=== PATIENT | female | born 1945 | race Caucasian/White ===

== ENCOUNTER 2016-07-12 04:43 | Observation (INO) | payer MEDICARE, OTHER ==
[2016-07-12] MEDS ORDERED: PIPERACILLIN/TAZOBACTAM 3.375 GM in SODIUM CHLORIDE 0.9% 100ML 100 ML IVPB ONE (05:31)
[2016-07-12] MEDS ORDERED: ACETAMINOPHEN 325 MG TAB PO ONE (05:31)
--- NOTE | 2016-07-12 05:35 | ED.PDOC ---
History of Present Illness - General Source: patient Exam Limitations: no limitations - History of Present Illness Initial Comments: the patient is a 71-year-old female presenting to the emergency room secondary to fever for the last 12 hours. She is having lower abdominal pain and lower right-sided back pain for the last 6-7 hours. She is also having diarrhea for the last 5 hours but she did take 2 doses of milk of magnesia yesterday for chronic constipation. She does have a history of urinary tract infections and diverticulitis. She does still have her appendix according to her. The patient is exquisitely tender in the right lower quadrant still very tender over the suprapubic area and even the left lower quadrant. No evidence of trauma. No palpable masses. Timing/Duration: 24 hours Severity: severe Improving Factors: nothing Worsening Factors: movement Associated Symptoms: fever/chills, loss of appetite, malaise, nausea/vomiting <Erich Morton - Last Filed: 07/12/16 06:56> <Marilee Walton - Last Filed: 07/12/16 08:28> - General Chief Complaint: Fever Stated Complaint: back pain Time Seen by Provider: 07/12/16 05:05 - History of Present Illness Allergies/Adverse Reactions: Allergies Citalopram Allergy (Verified 07/12/16 05:56) Metolazone Allergy (Verified 07/12/16 05:56) Phenobarbital Allergy (Verified 07/12/16 05:56) Tramadol Adverse Reaction (Verified 07/12/16 05:00) Home Medications: Ambulatory Orders Allopurinol [Zyloprim] 100 mg PO DAILY 04/07/16 Aspirin [Aspirin Childrens] 81 mg PO DAILY 04/07/16 Atorvastatin Calcium [Lipitor] 10 mg PO DAILY 04/07/16 Calcium Carbonate-Vitamin D [Calcium 600+D 600-400 mg-Unit] 1 tab PO DAILY 04/07 Folic Acid 1 mg PO DAILY 04/07/16 Furosemide [Lasix] 40 mg PO DAILY 04/07/16 Levothyroxine Sodium [Synthroid] 75 mcg PO DAILY 04/07/16 Oxybutynin Chloride 5 mg PO DAILY 04/07/16 Pantoprazole Sodium 40 mg PO DAILY 04/07/16 Potassium Chloride [Potassium Chloride ER] 10 meq PO DAILY 04/07/16 Ranitidine HCl 300 mg PO DAILY 04/07/16 Dexlansoprazole [Dexilant] 60 mg PO 07/12/16 Ranitidine HCl 300 mg PO 07/12/16 Review of Systems - Review of Systems Constitutional: States: fever, malaise EENTM: States: no symptoms reported Respiratory: States: no symptoms reported Cardiology: States: no symptoms reported Gastrointestinal/Abdominal: States: abdominal pain, constipation, diarrhea, nausea, vomiting Genitourinary: States: dysuria, frequency Musculoskeletal: States: back pain - on the right and lower Skin: States: no symptoms reported Neurological: States: no symptoms reported Endocrine: States: no symptoms reported All other Systems: No Change from Baseline <Erich Morton - Last Filed: 07/12/16 06:56> Past Medical History (General) - Patient Medical History Hx Stroke: No Hx Congestive Heart Failure: Yes Hx Hypertension: Yes Hx Diabetes: No Hx Gastroesophageal Reflux: Yes Hx Cancer: Yes - skin Surgical History: tonsillectomy, Hysterectomy - Vaccination History Hx Influenza Vaccination: Yes <Erich Morton - Last Filed: 07/12/16 06:56> Family Medical History - Family History Mother Family History: No Known <Erich Morton - Last Filed: 07/12/16 06:56> Physical Exam - Physical Exam General Appearance: Alert, Obvious distress Eye Exam: bilateral normal Ears, Nose, Throat: normal ENT inspection, normal pharynx Neck: non-tender, full range of motion, supple Respiratory: chest non-tender, lungs clear, normal breath sounds, no respiratory distress, no accessory muscle use Cardiovascular/Chest: normal peripheral pulses, no edema, other - regular rate Peripheral Pulses: radial,right: 2+, radial,left: 2+, dorsalis pedis,right: 2+, dorsalis pedis,left: 2+ Gastrointestinal/Abdominal: soft, other - see history of present illness Rectal Exam: deferred Back Exam: CVA tenderness (R) - but lower than expected Extremity: normal range of motion - slightly decreased range of motion, non- tender, no pedal edema, no calf tenderness, normal capillary refill Neurologic: alert, normal mood/affect, oriented x 3 Skin Exam: normal color Comments: Vital Signs - 24 hr 07/12/16 04:50 Temperature 102.3 F H Pulse Rate [LA] 76 Respiratory 20 Rate O2 Sat by Pulse 98 Oximetry <PraveenErich L - Last Filed: 07/12/16 06:56> Progress - Results/Orders Results/Orders: Laboratory Tests 07/12/16 07/12/16 05:26 05:38 WBC 8.0 RBC 3.69 L Hgb 12.1 Hct 36.7 MCV 99.3 H MCH 32.7 H MCHC 33.1 RDW 13.5 Plt Count 148 MPV 7.1 L Absolute Neuts (auto) 6.60 Absolute Lymphs (auto) 0.50 L Absolute Monos (auto) 0.70 Absolute Eos (auto) 0.10 Absolute Basos (auto) 0.00 Neutrophils % 82.5 H Lymphocytes % 6.8 L Monocytes % 9.1 H Eosinophils % 1.2 Basophils % 0.4 Sodium 140 Potassium 3.9 Chloride 106 Carbon Dioxide 25 Anion Gap 12.9 BUN 29 H Creatinine 1.31 H BUN/Creatinine Ratio 22.1 H Random Glucose 116 H Serum Osmolality 286.2 Calcium 9.5 Total Bilirubin 0.4 AST 30 ALT 20 Alkaline Phosphatase 95 Serum Total Protein 6.7 Albumin 4.3 Globulin 2.4 Albumin/Globulin Ratio 1.8 Urine Color Yellow Urine Appearance Sl cloudy Urine pH 8.5 H Ur Specific [place] 1.015 Urine Protein Negative Urine Glucose (UA) Negative Urine Ketones Negative Urine Blood Negative Urine Nitrite Negative Urine Bilirubin Negative Urine Urobilinogen 0.2 Ur Leukocyte Esterase Trace H Urine RBC 0 Urine WBC 3-5 H Ur Epithelial Cells 1-3 Urine Bacteria Rare <Erich Morton - Last Filed: 07/12/16 06:56> Departure <Erich Morton - Last Filed: 07/12/16 06:56> - Departure Time of Disposition: 08:28 <Marilee Walton - Last Filed: 07/12/16 08:28> - Departure Clinical Impression: Colitis, acute Disposition: Admit Patient Condition: Good Referrals: Mendez Dela Cruz MD [Primary Care Provider] - 1-2 Weeks Home Medications: Ambulatory Orders Allopurinol [Zyloprim] 100 mg PO DAILY 04/07/16 Aspirin [Aspirin Childrens] 81 mg PO DAILY 04/07/16 Atorvastatin Calcium [Lipitor] 10 mg PO DAILY 04/07/16 Calcium Carbonate-Vitamin D [Calcium 600+D 600-400 mg-Unit] 1 tab PO DAILY 04/07 Folic Acid 1 mg PO DAILY 04/07/16 Furosemide [Lasix] 40 mg PO DAILY 04/07/16 Levothyroxine Sodium [Synthroid] 75 mcg PO DAILY 04/07/16 Oxybutynin Chloride 5 mg PO DAILY 04/07/16 Pantoprazole Sodium 40 mg PO DAILY 04/07/16 Potassium Chloride [Potassium Chloride ER] 10 meq PO DAILY 04/07/16 Ranitidine HCl 300 mg PO DAILY 04/07/16 Dexlansoprazole [Dexilant] 60 mg PO 07/12/16 Ranitidine HCl 300 mg PO 07/12/16 Decision To Admit - Decistion To Admit Decision to Admit Reason: Admit from ER Decision to Admit Date: 07/12/16 Decision to Admit Time: 08:28 <Marilee Walton - Last Filed: 07/12/16 08:28> Addendum entered and electronically signed by Erich Morton MD 07/12/16 06:59 : Departure - Departure Clinical Impression: Colitis, acute Disposition: Admit Patient Home Medications: Ambulatory Orders Allopurinol [Zyloprim] 100 mg PO DAILY 04/07/16 Aspirin [Aspirin Childrens] 81 mg PO DAILY 04/07/16 Atorvastatin Calcium [Lipitor] 10 mg PO DAILY 04/07/16 Calcium Carbonate-Vitamin D [Calcium 600+D 600-400 mg-Unit] 1 tab PO DAILY 04/07 Folic Acid 1 mg PO DAILY 04/07/16 Furosemide [Lasix] 40 mg PO DAILY 04/07/16 Levothyroxine Sodium [Synthroid] 75 mcg PO DAILY 04/07/16 Oxybutynin Chloride 5 mg PO DAILY 04/07/16 Pantoprazole Sodium 40 mg PO DAILY 04/07/16 Potassium Chloride [Potassium Chloride ER] 10 meq PO DAILY 04/07/16 Ranitidine HCl 300 mg PO DAILY 04/07/16 Dexlansoprazole [Dexilant] 60 mg PO 07/12/16 Ranitidine HCl 300 mg PO 07/12/16 ED Addendum - ED Addendum Addendum: the patient is a 71-year-old female with a history of recurrent urinary tract infections and diverticulitis presenting with fever approximating 103 with fairly severe lower abdominal pain worse on the right and left. Urinalysis is reassuring. CT scan itself is reassuring. Due to the pain and the fevers were going to go ahead and admit her and place her on antibiotic therapy. Zosyn has been started on the patient. Pain medications have been given. She may need IV fluids. She has needed dose of antiemetics.
[2016-07-12] MEDS ORDERED: KETOROLAC TROMETHAMINE INJ 30 MG/ML VIAL IV ONE (05:36)
[2016-07-12] MEDS ORDERED: SODIUM CHLORIDE 0.9% 100ML 100 ML IVPB ONE (05:42)
[2016-07-12] MEDS ORDERED: PIPERACILLIN/TAZOBACTAM 3.375 GM VIAL IVPB ONE (05:42)
[2016-07-12] MEDS ORDERED: ONDANSETRON ODT 8 MG TAB SL SCH (06:00)
[2016-07-12] MEDS ORDERED: DEX 5% W/NACL 0.45% 1000ML 1,000 ML IVS PRN (06:06)
--- NOTE | 2016-07-12 06:53 | CT ---
EXAM DESCRIPTION: CT ABDOMEN PELVIS WITHOUT IV CONTRAST 07/12/2016 6:45 AM CLINICAL HISTORY: 71 y/o , F, lower abd pain COMPARISON: CT abdomen and pelvis with contrast April 07, 2016 TECHNIQUE: Volumetric CT acquisition was performed through the abdomen and pelvis. Images in the axial and coronal planes were presented for interpretation FINDINGS: The visualized portions of the lung bases are clear. The cardiomediastinal structures are within normal limits. Within the upper abdomen, the liver and spleen are normal in size and morphology. The gallbladder is normal in morphology. The intra/extrahepatic biliary tree is normal in appearance. The pancreas and adrenal glands are normal. The right kidney is normal in size in the right ureter is normal in course and caliber. There are no right renal calculi, distal obstructing stones, or evidence of hydronephrosis/hydroureter. The left kidney is normal in size in the left ureter is normal in course and caliber. There are no left renal calculi, distal obstructing stones, or evidence of hydronephrosis/hydroureter. There is a moderate size hiatal hernia. The small intestines are within normal limits without evidence of bowel dilation or wall thickening. The appendix is well visualized and normal. There are moderate descending and sigmoid colonic diverticula without associated wall thickening or inflammatory changes. Within the pelvis, the bladder and rectum are normal. The uterus and ovaries are surgically absent. There are no pathologically enlarged inguinal, retroperitoneal, portacaval, or mesenteric lymph nodes. The soft tissue structures of the abdominal wall are normal. The patient is status post L4 and L5 laminectomy with multilevel disc space narrowing and vacuum disc phenomenon throughout the lumbar spine. There is pedicle and fixation hardware at the L4/L5 level. There is a spinal stimulator device noted to be in place. The abdominal aorta and its primary branches are normal in course and caliber. Limited evaluation of the venous structures demonstrates no gross abnormalities. IMPRESSION: 1. No acute intra-abdominal process (stable appearing abdomen). 2. Diverticulosis without evidence of diverticulitis. 3. Degenerative and surgical changes throughout the lumbar spine. 4. Status post hysterectomy. Electronically signed by: Birdie Rubin MD 07/12/2016 06:51
--- NOTE | 2016-07-12 09:03 | HP ---
SUPERVISING PHYSICIAN: Mendez Dela Cruz M.D. CHIEF COMPLAINT: Left lower abdominal pain and right sided lower back pain. HISTORY OF PRESENT ILLNESS: This is a 71 year-old female patient who presented to the Emergency Room due to some right sided lower back pain as well as some left lower abdominal pain with some diarrhea and a fever up to 102.3. She has a significant history of diverticulosis. Her abdominal pain started approximately 2 to 3 days ago and per instructions from her concrete gun operator, she was to take Milk of Magnesia when she had lower abdominal pain to "keep me from stopping up." Due to the abdominal pain, she took 1 tablespoon of Milk of Magnesia on Monday night with minimal results and then she again took 1 tablespoon of Milk of Magnesia the night before she presented to the Emergency Room. She did have 2 bouts of diarrhea several hours later but by the time she came to the Emergency Room her diarrhea had resolved. She was very tender across her abdomen and she continued complaints of right lower back pain. She also said she had a fever and she just felt poorly over the last few days. In the Emergency Room, her abdominal CT showed no acute intraabdominal process with diverticulosis and no CT evidence of diverticulitis, degenerative and surgical changes throughout the lumbar spine and her white count was 8 with a left shift, hemoglobin 12.1, hematocrit 36.7. Chemistry had sodium 140, potassium 3.9, chloride 106, carbon dioxide 25, BUN 29, creatinine1.39, glucose 116. Urine had a pH of 8.5 and positive for leukocyte esterase and urine WBCs of 3 to 5. I was called for admission to the hospital. PAST MEDICAL HISTORY: 1. Hypothyroidism. 2. Congestive heart failure with diastolic component with unknown echocardiogram to review. 3. Chronic kidney disease stage 3. 4. Diverticulitis. 5. Gastroesophageal reflux disease. 6. Hiatal hernia. 7. Hyperlipidemia. 8. Lumbar disc disease. 9. Vitamin B12 deficiency. 10. History of CVA. 11. Rheumatoid arthritis. PAST SURGICAL HISTORY: 1. Hysterectomy. 2. Tonsillectomy and adenoidectomy. 3. Bladder suspension. 4. Carotid endarterectomy. 5. Anterior/posterior vaginal wall repair. OUTPATIENT MEDICATIONS: Per the EMR and awaiting verification. ALLERGIES: CITALOPRAM, METOLAZONE, PHENOBARBITAL AND TRAMADOL. FAMILY HISTORY: Noncontributory. SOCIAL HISTORY: Has a past history of cigarette smoking but quit many years ago. She drinks alcohol very infrequently. There is no history of illicit drug use. She is retired and she has 2 children. REVIEW OF SYSTEMS: Complains of fatigue and fever. Denies any weight changes. HEENT: As per the History of Present Illness but denies any sinus symptoms or sore throat. RESPIRATORY: Denies any coughing, wheezing, shortness of breath. CARDIAC: Denies chest pains, tachycardia or palpitations. ABDOMEN: As per the history of present illness. NEUROLOGIC: Denies dizziness, headache or syncope. SKIN: Denies lesions or rashes. PHYSICAL EXAMINATION: VITAL SIGNS: On admission, her temperature was 102.3, at this time it is 98.2, heart rate 60, blood pressure 111/69, respiratory rate 17, oxygen 92% on room air, weight 87.4 kg. GENERAL: This is a 71 year-old female patient who is lying in her hospital bed. She is in no acute distress. HEENT: Normocephalic and atraumatic. Pupils are equal and reactive. Oropharynx is clear. Oral mucous membranes are moist. NECK: Supple without mass. There is no jugular venous distention. CHEST: Essentially clear to auscultation bilaterally. There is equal rise and fall of the chest with inspiration and expiration. CARDIOVASCULAR: Regular rate and rhythm. ABDOMEN: Soft, nondistended. She is slightly tender to the left lower quadrant as well as under the umbilicus. No rebound tenderness. There is mild CVA tenderness bilaterally. EXTREMITIES: No cyanosis, clubbing or edema. NEUROLOGIC: She is awake, alert and oriented times three. SKIN: Warm and dry. LABORATORY: As per the History of Present Illness with the addition of her Influenza A and B were negative. Preliminary blood cultures are negative to date. Chest x-ray shows emphysema, otherwise her lungs are clear. Cardiomegaly without failure. All other labs and films have been reviewed via the EMR. ASSESSMENT: 1. Left lower quadrant abdominal pain with a significant history of diverticulitis. 2. Nausea, vomiting and diarrhea. 3. Fever up to 102.3 with negative flu swab, may be related to an infectious process in the abdomen. 4. Renal insufficiency. 5. Congestive heart failure, diastolic in origin but with unknown echocardiogram for review. PLAN: We will admit the patient for observation. Given her significant history of diverticulitis and presently having significant left lower abdominal pain and tenderness, I will start Flagyl and Levaquin intravenous antibiotics. I will also start her on Protonix for ulcer prophylaxis and Lovenox for DVT prophylaxis. I will repeat her labs in the morning. She was also NPO earlier today and she has tolerated ice chips, fluids and water well this afternoon. I will advance her diet this evening. If she tolerates that well without any nausea and vomiting, we will advance her diet tomorrow and hopefully she can be discharged home on oral antibiotics and close followup with Dr. Dela Cruz. Dr. Dela Cruz is the collaborating physician available for consultation. #[id number] [facility]ERS[facility]
[2016-07-12] MEDS ORDERED: SODIUM CHLORIDE 0.9% 1000ML 1,000 ML ONE (09:15)
--- NOTE | 2016-07-12 12:37 | RAD ---
Study: Frontal and Lateral Views of the Chest. Indication: fever; low O2 sat Comparison: There 2013. Impression: Cardiomegaly without failure. Thoracic aorta calcified. Emphysema, otherwise lungs clear. Dorsal column stimulator device noted. Osteopenia. If this is a new finding, DEXA scan recommended as well as evaluation for possible osteoporosis treatment. Electronically signed by: Dar Pena MD 07/12/2016 12:35
[2016-07-12] MEDS ORDERED: SODIUM CHLORIDE 0.9% (FLUSH) 10 ML SYG IV PRN (13:22)
[2016-07-12] MEDS ORDERED: ONDANSETRON INJ 4 MG/2 ML VIAL IV PRN (13:22)
[2016-07-12] MEDS ORDERED: IV SET AND CAP CHANGE INJ INJ SCH (13:30)
[2016-07-12] MEDS ORDERED: levoFLOXacin 250MG IV 50 ML IVPB ONE (13:59)
[2016-07-12] MEDS ORDERED: ENOXAPARIN SODIUM 30 MG/0.3 ML SYG SUBCU SCH (14:00)
[2016-07-12] MEDS ORDERED: levoFLOXacin 250MG IV 250 MG in PREMIX BAG 1 BAG IVPB SCH (14:00)
[2016-07-12] MEDS ORDERED: metroNIDAZOLE IV PREMIX 500MG 100 ML IVPB ONE ×2 (14:01→20:57)
[2016-07-12] MEDS: PANTOPRAZOLE SODIUM IV 40 MG VIAL IV SCH (14:02)
[2016-07-12] MEDS: metroNIDAZOLE IV PREMIX 500MG 500 MG in PREMIX BAG 1 BAG IVPB SCH ×2 (15:22→22:49)
[2016-07-12] MEDS ORDERED: ACETAMINOPHEN 325 MG TAB ONE (20:46)
[2016-07-12] MEDS ORDERED: ACETAMINOPHEN 325 MG TAB PO PRN (20:49)
[2016-07-13] MEDS ORDERED: metroNIDAZOLE IV PREMIX 500MG 100 ML IVPB ONE (03:45)
[2016-07-13] MEDS: PANTOPRAZOLE SODIUM IV 40 MG VIAL IV SCH (06:20)
[2016-07-13] MEDS: metroNIDAZOLE IV PREMIX 500MG 500 MG in PREMIX BAG 1 BAG IVPB SCH (06:21)
[2016-07-13 06:29] VITALS: TEMP 97.9
[2016-07-13] MEDS ORDERED: levoFLOXacin 250MG IV 0 ML IVPB ONE (07:01)
[2016-07-13] MEDS ORDERED: SODIUM CHLORIDE 0.9% (FLUSH) 10 ML SYG IV SCH (09:00)
[2016-07-13] MEDS ORDERED: ENOXAPARIN SODIUM 40 MG/0.4 ML SYG SUBCU SCH (09:00)
[2016-07-13 09:14] VITALS: BP 134/75; O2SAT 98
--- NOTE | 2016-07-13 19:33 | DS ---
SUPERVISING PHYSICIAN: Mendez Dela Cruz M.D. DISCHARGE DIAGNOSES: 1. Left lower quadrant abdominal pain with a significant history of diverticulitis. 2. Nausea, vomiting and diarrhea. 3, Fever up to 102.3 with negative flu swab, may be related to an infectious process in the abdomen. 4. Renal insufficiency, 5, Congestive heart failure, diastolic in origin but wiht unknown echocardiogram for review, HISTORY OF PRESENT ILLNESS: This is a 71 year-old female patient who presented to the Emergency Room due to some right sided lower back pain as well as some left lower abdominal pain with some diarrhea and a fever up to 102.3. Her flu swab was negative for A or B but she does have a significant history of diverticulitis. Her abdominal pain started approximately 2 to 3 days ago and per instructions from her gaming director, she was to take Milk of Magnesia when she had lower abdominal pain to "keep me from stopping up." Due to the abdominal pain, she took 1 tablespoon of Milk of Magnesia 2 days prior to admission and the evening prior to admission. She did have some diarrhea afterwards but by the time she got to the Emergency Room the diarrhea had resolved. She continued complaint fo being very tender across her lower abdomen as well as the right lower back pain. She said she had felt poorly and had fever for several days prior to coming to the Emergency Room. CT of her abdomen showed no evidence of diverticulitis and no acute intraabdominal process with diverticulosis. She had a white count fo 8 with a left shift, hemoglobin 12.1, hematocrit 36.7. Sodium 140, potassium 3.9, chloride 106, carbon dioxide 25, BUN 29, creatinine1.39, glucose 116. Urine has a pH of 8.5 and positive for leukocyte esterase, and urine WBCs of 3 to 5. She was admitted to the hospital for observation and bowel rest as well as IV antibiotic administration. HOSPITAL COURSE: Given her significant history of diverticulitis and having significant left lower abdominal pain and tenderness, she was started on Levaquin and Flagyl. She was also placed on Protonix for ulcer prophylaxis as well as Xopenex for DVT prophylaxis. She was NPO throughout the day and for her dinner she was given a liquid diet. She tolerated that well. After several doses of her antibiotics, her abdominal pain resolved. This morning, she was started on a bland diet. She tolerated her oral intake well. She has no further complaints of abdominal pain. Her abdomen is soft and non-tender. Her vital signs have been stable. Her lab work is at her baseline. She will be discharged home in stable condition. DISCHARGE PLAN: She is to resume her previous activity. She is to be placed on a bland diet. We discussed at length appropriate and inappropriate foods that she should be eating. I will discharge her home on Flagyl and renal dosed Levaquin. She will have 7 more days of those antibiotics. She is to followup with Dr. Dela Cruz on 07/19/16 at 10:30 AM. If she has any further complications or problems, she is to followup with Dr. Dela Cruz or return to the Emergency Room. Dr. Dela Cruz is the collaborating physician available for consultation. DISCHARGE MEDICATIONS: 1. Potassium chloride. 2. Oxybutynin. 3. Levothyroxine. 4. Furosemide. 5. Folic acid. 6. Calcium carbonate Vitamin D. 7. Lipitor. 8. Aspirin. 9. Zyloprim. 10. Ranitidine. 11. Dexalant. 12. Levaquin. 13. Metronidazole. #[id number] [facility]
== END 2016-07-13 12:54 | disposition home or self-care (01) ==
LOC: ER 04:43 → INTOOBSV 09:02 → MS 09:02
PROVIDERS: ADMIT Family Medicine; ATTEND Nurse Practitioner Acute Care
DX: K52.9 Noninfective gastroenteritis and colitis, unspecified (principal); R10.32 Left lower quadrant pain; R11.2 Nausea with vomiting, unspecified; M54.5 Low back pain; R50.9 Fever, unspecified; K57.30 Diverticulosis of large intestine without perforation or abscess without bleeding; I50.30 Unspecified diastolic (congestive) heart failure; E03.9 Hypothyroidism, unspecified; N18.3 Chronic kidney disease, stage 3 (moderate); E78.5 Hyperlipidemia, unspecified; M51.36 Other intervertebral disc degeneration, lumbar region; E53.8 Deficiency of other specified B group vitamins; M06.9 Rheumatoid arthritis, unspecified; K44.9 Diaphragmatic hernia without obstruction or gangrene; M85.88 Other specified disorders of bone density and structure, other site; Z79.82 Long term (current) use of aspirin; Z79.899 Other long term (current) drug therapy; Z88.6 Allergy status to analgesic agent; Z88.8 Allergy status to other drugs, medicaments and biological substances; Z87.19 Personal history of other diseases of the digestive system; Z86.73 Personal history of transient ischemic attack (TIA), and cerebral infarction without residual deficits; Z87.891 Personal history of nicotine dependence; Z90.710 Acquired absence of both cervix and uterus
CPT/HCPCS: 36415; 71020; 74176; 80053 ×2; 81001; 85025 ×2; 87040 ×2; 87086; 87804; 94760; 96365; 96366 ×2; 96367; 96372 ×2; 96375 ×2; 96376; 99284; G0378; J1650 ×2; J1885; J1956; J2543; J3490 ×3; J7030; J7050

== ENCOUNTER → 2016-08-03 | Outpatient (CLI) | payer MEDICARE, OTHER | END | disposition home or self-care (01) | LOC: LAB.O 15:45 | PROVIDERS: ATTEND Nurse Practitioner Family | DX: R19.7 Diarrhea, unspecified (principal) ==

== ENCOUNTER → 2016-08-23 | Outpatient (CLI) | payer MEDICARE, OTHER | LOC: GMAJ 14:11 | PROVIDERS: ATTEND Family Medicine | DX: D64.9 Anemia, unspecified (principal) ==

== ENCOUNTER → 2016-08-29 | Outpatient (CLI) | payer MEDICARE, OTHER ==
--- NOTE | 2016-08-29 10:41 | CT ---
EXAM DESCRIPTION: Lumbar Spine (accession [id number]), Thoracic Spine (accession [id number]) CLINICAL HISTORY: 71 years, Female, OTHER INTERVERTEBRAL DISC DISPLACEMENT, LUMBAR REGION COMPARISON: Direct comparison is made with lumbar CT dated January 18, 2011 TECHNIQUE: Thoracic and lumbar CT with thin-section axial imaging with reconstructed MPR images reviewed as well. FINDINGS: Thoracolumbar scoliosis is present. The lumbar curvature to the right is very prominent not significantly changed since previous. There is a minor broad levoscoliosis of the thoracic spine. There is no fracture or bone lesion observed. Advanced lumbar spondylosis is present with collapse of L2-3, L3-4, and L5-S1 discs with vacuum phenomenon. There is been previous posterior and interbody fusion at L4-5 stable since the remote previous study. The disc changes at L3-4 and L5-S1 have progressed significantly since the previous study. Dorsal column stimulator is observed extending from T9 down to T11 in good position. There is no bony canal stenosis observed at any level. Incidental note is made of a moderate-sized hiatal hernia. IMPRESSION: 1. Progressive lumbar disc disease at L3-4 and L5-S1 with advanced stable disc disease at L2-3 2. Stable postop changes at L4-5 3. Hiatal hernia. 4. No acute process observed Electronically signed by: Phong Bruner MD 08/29/2016 10:40 AM DEVELOPMENT CONSULTANT
--- NOTE | 2016-08-29 10:41 | CT ---
EXAM DESCRIPTION: Lumbar Spine (accession [id number]), Thoracic Spine (accession [id number]) CLINICAL HISTORY: 71 years, Female, OTHER INTERVERTEBRAL DISC DISPLACEMENT, LUMBAR REGION COMPARISON: Direct comparison is made with lumbar CT dated January 18, 2011 TECHNIQUE: Thoracic and lumbar CT with thin-section axial imaging with reconstructed MPR images reviewed as well. FINDINGS: Thoracolumbar scoliosis is present. The lumbar curvature to the right is very prominent not significantly changed since previous. There is a minor broad levoscoliosis of the thoracic spine. There is no fracture or bone lesion observed. Advanced lumbar spondylosis is present with collapse of L2-3, L3-4, and L5-S1 discs with vacuum phenomenon. There is been previous posterior and interbody fusion at L4-5 stable since the remote previous study. The disc changes at L3-4 and L5-S1 have progressed significantly since the previous study. Dorsal column stimulator is observed extending from T9 down to T11 in good position. There is no bony canal stenosis observed at any level. Incidental note is made of a moderate-sized hiatal hernia. IMPRESSION: 1. Progressive lumbar disc disease at L3-4 and L5-S1 with advanced stable disc disease at L2-3 2. Stable postop changes at L4-5 3. Hiatal hernia. 4. No acute process observed Electronically signed by: Phong Bruner MD 08/29/2016 10:40 AM RADIATION THERAPY TECHNOLOGIST
== END | disposition home or self-care (01) ==
LOC: CT 08:31
PROVIDERS: ATTEND Family Medicine
DX: M51.27 Other intervertebral disc displacement, lumbosacral region (principal)

== ENCOUNTER → 2016-10-25 | Outpatient (CLI) | payer MEDICARE, OTHER | LOC: YCFC.O 15:22 | PROVIDERS: ATTEND Anesthesiology Pain Medicine | DX: Z79.891 Long term (current) use of opiate analgesic (principal) ==

== ENCOUNTER 2016-10-31 11:49 | Day surgery (SDC) | payer MEDICARE, OTHER ==
[~2016-10-31 11:49] MED LIST: LIDOCAINE 1% MPF 5 ML VIAL ONE; SODIUM BICARBONATE VIAL 50 MEQ/50 ML VIAL ONE; SODIUM CHLORIDE 0.9% 10 ML VIAL ONE; methylPREDNISolone ACETATE 80 MG/ML VIAL ONE
[2016-10-31] MEDS ORDERED: BUPIVACAINE 0.25% INJ 30 ML VIAL INJ ONE (13:18)
[2016-10-31 13:42] VITALS: O2SAT 100
[2016-10-31 13:49] VITALS: BP 159/80; TEMP 97.1
== END 2016-10-31 13:35 | disposition home or self-care (01) ==
LOC: AMB 11:49
PROVIDERS: ATTEND Anesthesiology Pain Medicine
DX: M46.1 Sacroiliitis, not elsewhere classified (principal); G89.4 Chronic pain syndrome; I25.10 Atherosclerotic heart disease of native coronary artery without angina pectoris; K21.9 Gastro-esophageal reflux disease without esophagitis; M81.0 Age-related osteoporosis without current pathological fracture; Z86.73 Personal history of transient ischemic attack (TIA), and cerebral infarction without residual deficits; Z87.891 Personal history of nicotine dependence; Z79.82 Long term (current) use of aspirin; Z79.899 Other long term (current) drug therapy
CPT/HCPCS: 27096; 76000; J1030

== ENCOUNTER 2016-11-11 10:08 | Emergency (ER) | payer MEDICARE, OTHER ==
[2016-11-11 10:30] VITALS: TEMP 97.2
--- NOTE | 2016-11-11 10:35 | CT ---
EXAM DESCRIPTION: Head CLINICAL HISTORY: left sided tingling for 30 minutes, hx of CVA COMPARISON: None TECHNIQUE: Noncontrast transaxial CT images of the head are obtained from base to vertex. This exam was performed according to our departmental dose-optimization program, which includes automated exposure control, adjustment of the mA and/or kV according to patient size and/or use of iterative reconstruction technique. FINDINGS: The midline structures are not displaced. Sulci are age-appropriate. There are areas of decreased attenuation in the periventricular white matter and the white matter of the centrum semiovale. There is no evidence of mass, mass-effect, hydrocephalus, or acute intracranial hemorrhage. No abnormal extra axial fluid collection is seen. Bone windows show no evidence of depressed skull fracture. Severe calcifications of the intracranial carotid arteries are seen. The visualized paranasal sinuses are unremarkable. IMPRESSION: 1. Age-appropriate atrophy with evidence of old small vessel ischemic type changes seen. 2. No acute abnormality is seen on noncontrast CT of the head. Electronically signed by: Seb Fowler MD 11/11/2016 10:34 AM CDT
--- NOTE | 2016-11-11 10:44 | RAD ---
EXAM DESCRIPTION: Chest,1 View CLINICAL HISTORY: 71 years Female, left sided weakness IMPRESSION: Moderate-sized hiatal hernia. Epidural stimulator device noted. Levoscoliosis. Heart size is likely adequate. Lungs are clear. No pleural effusion or pneumothorax. Electronically signed by: Hugo Merlos MD 11/11/2016 10:43 AM CDT
[2016-11-11] MEDS ORDERED: MECLIZINE HCL 12.5 MG TAB PO ONE (12:02)
[2016-11-11 15:15] VITALS: O2SAT 99
--- NOTE | 2016-11-11 17:01 | ED.PDOC ---
History of Present Illness - General Chief Complaint: Neuro Symptoms/Deficits Stated Complaint: LEFT HAND NUMBNESS Time Seen by Provider: 11/11/16 10:11 Source: patient Exam Limitations: no limitations - History of Present Illness Initial Comments: Patient presents with tingling in her left hand and numbness in the tips of her left fingers. She denies having had this before. She had a CVA in 2010. She denies any cardiac history. No chest pain nor dyspnea. No other symptoms. Timing/Duration: 1/2 hour Severity: mild Improving Factors: nothing Worsening Factors: nothing Associated Symptoms: denies symptoms Allergies/Adverse Reactions: Allergies Citalopram Allergy (Verified 07/12/16 05:56) Metolazone Allergy (Verified 07/12/16 05:56) Phenobarbital Allergy (Verified 07/12/16 05:56) Tramadol Adverse Reaction (Verified 07/12/16 05:00) Home Medications: Ambulatory Orders Allopurinol [Zyloprim] 100 mg PO BID 04/07/16 Aspirin [Aspirin Childrens] 81 mg PO DAILY 04/07/16 Atorvastatin Calcium [Lipitor] 10 mg PO BEDTIME 04/07/16 Folic Acid 1 mg PO DAILY 04/07/16 Furosemide [Lasix] 40 mg PO DAILY 04/07/16 Levothyroxine Sodium [Synthroid] 75 mcg PO DAILY@0630 04/07/16 Oxybutynin Chloride 10 mg PO DAILY 04/07/16 Potassium Chloride [Potassium Chloride ER] 20 meq PO DAILY 04/07/16 Ranitidine HCl 300 mg PO BEDTIME 07/12/16 Ascorbic Acid [Vitamin C] 1,000 mg PO DAILY 11/11/16 Cholecalciferol [Vitamin D3] 1,000 unit PO DAILY 11/11/16 Hydroxychloroquine Sulfate [Hydroxychloroquine Sulfat] 200 mg PO BID 11/11/16 Magnesium Hydroxide [Milk Of Magnesia] 30 ml PO PRN 11/11/16 Pantoprazole Sodium 40 mg PO .DAILY AND AT NOON 11/11/16 Tramadol HCl 50 mg PO DAILY 11/11/16 Review of Systems - Review of Systems Constitutional: States: no symptoms reported EENTM: States: no symptoms reported Respiratory: States: no symptoms reported Cardiology: States: no symptoms reported Gastrointestinal/Abdominal: States: no symptoms reported Genitourinary: States: no symptoms reported Musculoskeletal: States: see HPI Skin: States: no symptoms reported Neurological: States: see HPI Endocrine: States: no symptoms reported Hematologic/Lymphatic: States: no symptoms reported Past Medical History (General) - Patient Medical History Hx Seizures: No Hx Stroke: Yes - 2000 Hx Asthma: No Hx of COPD: No Hx Congestive Heart Failure: No Hx Hypertension: Yes Hx Thyroid Disease: Yes Hx Diabetes: No Hx Gastroesophageal Reflux: Yes Hx Cancer: Yes - skin Hx MRSA: No Surgical History: Hysterectomy, other - Vaccination History Hx Influenza Vaccination: Yes - Social History Hx Alcohol Use: No Hx Substance Use: No Hx Physical Abuse: No Hx Emotional Abuse: No Family Medical History - Family History Mother Family History: No Known Living Status: Hx Family Asthma: - COPD Hx Family Congestive Heart Failure: Yes Hx Cardiac Disease: Yes Physical Exam - Physical Exam General Appearance: Alert Ears, Nose, Throat: normal ENT inspection Neck: non-tender, full range of motion, supple Respiratory: lungs clear Cardiovascular/Chest: normal peripheral pulses, regular rate, rhythm Gastrointestinal/Abdominal: normal bowel sounds, non tender, soft Back Exam: no CVA tenderness Extremity: normal range of motion, non-tender, normal inspection Neurologic: procedures analyst II-XII nml as tested, no motor/sensory deficits, alert, normal mood/affect, oriented x 3 Skin Exam: normal color Lymphatic: no adenopathy Progress - Progress Progress: 11/11/16 17:01 CT head negative for acute disease. Troponins x 3 negative. Patient developed mild dizziness which responded to meclizine 25 mg po x one. Her paresthesia in her hand cleared up. She was sent home with orders to return if symptoms recur. Laboratory Tests 11/11/16 11/11/16 11/11/16 10:00 10:00 10:00 WBC 6.7 RBC 3.90 L Hgb 12.7 Hct 38.3 MCV 98.3 MCH 32.5 H MCHC 33.2 RDW 14.3 Plt Count 133 MPV 7.8 Absolute Neuts (auto) 4.00 Absolute Lymphs (auto) 2.10 Absolute Monos (auto) 0.50 Absolute Eos (auto) 0.00 Absolute Basos (auto) 0.00 Neutrophils % 59.2 Lymphocytes % 32.0 Monocytes % 7.9 Eosinophils % 0.5 L Basophils % 0.4 PT 9.9 INR 0.870 PTT (SP) 21.5 L Sodium 141 Potassium 3.7 Chloride 107 Carbon Dioxide 26 Anion Gap 11.7 L BUN 27 H Creatinine 1.53 H BUN/Creatinine Ratio 17.6 POC Glucose Random Glucose 106 H Serum Osmolality 286.8 Calcium 9.3 Total Bilirubin 0.7 AST 25 ALT 21 Alkaline Phosphatase 87 Creatine Kinase CK-MB (CK-2) CK-MB (CK-2) % Troponin I B-Natriuretic Peptide Serum Total Protein 6.8 Albumin 4.3 Globulin 2.5 Albumin/Globulin Ratio 1.7 TSH Urine Color Urine Appearance Urine pH Ur Specific [place] Urine Protein Urine Glucose (UA) Urine Ketones Urine Blood Urine Nitrite Urine Bilirubin Urine Urobilinogen Ur Leukocyte Esterase Urine RBC Urine WBC Ur Epithelial Cells Urine Bacteria 11/11/16 11/11/16 11/11/16 10:00 10:00 10:20 WBC RBC Hgb Hct MCV MCH MCHC RDW Plt Count MPV Absolute Neuts (auto) Absolute Lymphs (auto) Absolute Monos (auto) Absolute Eos (auto) Absolute Basos (auto) Neutrophils % Lymphocytes % Monocytes % Eosinophils % Basophils % PT INR PTT (SP) Sodium Potassium Chloride Carbon Dioxide Anion Gap BUN Creatinine BUN/Creatinine Ratio POC Glucose 112 H Random Glucose Serum Osmolality Calcium Total Bilirubin AST ALT Alkaline Phosphatase Creatine Kinase 66 CK-MB (CK-2) 3.2 CK-MB (CK-2) % Not Reportable Troponin I 0.03 B-Natriuretic Peptide 119.0 H Serum Total Protein Albumin Globulin Albumin/Globulin Ratio TSH 1.00 Urine Color Urine Appearance Urine pH Ur Specific [place] Urine Protein Urine Glucose (UA) Urine Ketones Urine Blood Urine Nitrite Urine Bilirubin Urine Urobilinogen Ur Leukocyte Esterase Urine RBC Urine WBC Ur Epithelial Cells Urine Bacteria 11/11/16 11/11/16 11/11/16 10:46 13:35 16:29 WBC RBC Hgb Hct MCV MCH MCHC RDW Plt Count MPV Absolute Neuts (auto) Absolute Lymphs (auto) Absolute Monos (auto) Absolute Eos (auto) Absolute Basos (auto) Neutrophils % Lymphocytes % Monocytes % Eosinophils % Basophils % PT INR PTT (SP) Sodium Potassium Chloride Carbon Dioxide Anion Gap BUN Creatinine BUN/Creatinine Ratio POC Glucose Random Glucose Serum Osmolality Calcium Total Bilirubin AST ALT Alkaline Phosphatase Creatine Kinase 59 57 CK-MB (CK-2) 2.7 2.7 CK-MB (CK-2) % Not Reportable Not Reportable Troponin I 0.03 0.04 B-Natriuretic Peptide Serum Total Protein Albumin Globulin Albumin/Globulin Ratio TSH Urine Color Yellow Urine Appearance Clear Urine pH 7.5 Ur Specific [place] 1.015 Urine Protein Negative Urine Glucose (UA) Negative Urine Ketones Negative Urine Blood Negative Urine Nitrite Negative Urine Bilirubin Negative Urine Urobilinogen 0.2 Ur Leukocyte Esterase Trace H Urine RBC 0 Urine WBC 0-1 Ur Epithelial Cells 0 Urine Bacteria 0 - EKG/XRAY/CT CT Ordered: Yes Departure - Departure Clinical Impression: Paresthesia and pain of left extremity Disposition: Discharge to Home or Self Care Departure Forms: ED Discharge - Pt. Copy, Patient Portal Self Enrollment Diet: resume usual diet Activity: increase activity as tolerated Referrals: Mendez Dela Cruz MD [Primary Care Provider] - 1-2 Weeks Home Medications: Ambulatory Orders Allopurinol [Zyloprim] 100 mg PO BID 04/07/16 Aspirin [Aspirin Childrens] 81 mg PO DAILY 04/07/16 Atorvastatin Calcium [Lipitor] 10 mg PO BEDTIME 04/07/16 Folic Acid 1 mg PO DAILY 04/07/16 Furosemide [Lasix] 40 mg PO DAILY 04/07/16 Levothyroxine Sodium [Synthroid] 75 mcg PO DAILY@0630 04/07/16 Oxybutynin Chloride 10 mg PO DAILY 04/07/16 Potassium Chloride [Potassium Chloride ER] 20 meq PO DAILY 04/07/16 Ranitidine HCl 300 mg PO BEDTIME 07/12/16 Ascorbic Acid [Vitamin C] 1,000 mg PO DAILY 11/11/16 Cholecalciferol [Vitamin D3] 1,000 unit PO DAILY 11/11/16 Hydroxychloroquine Sulfate [Hydroxychloroquine Sulfat] 200 mg PO BID 11/11/16 Magnesium Hydroxide [Milk Of Magnesia] 30 ml PO PRN 11/11/16 Pantoprazole Sodium 40 mg PO .DAILY AND AT NOON 11/11/16 Tramadol HCl 50 mg PO DAILY 11/11/16 Additional Instructions: Return to the ER if symptoms recur. Follow up with your primary physician next week.
[2016-11-11 17:21] VITALS: BP 124/60
== END 2016-11-11 17:45 | disposition home or self-care (01) ==
LOC: ER 10:08
DX: R20.2 Paresthesia of skin (principal); M79.602 Pain in left arm; Z86.73 Personal history of transient ischemic attack (TIA), and cerebral infarction without residual deficits; E07.9 Disorder of thyroid, unspecified; I10 Essential (primary) hypertension; K21.9 Gastro-esophageal reflux disease without esophagitis; Z85.828 Personal history of other malignant neoplasm of skin; Z79.82 Long term (current) use of aspirin; Z79.899 Other long term (current) drug therapy; Z88.8 Allergy status to other drugs, medicaments and biological substances

== ENCOUNTER → 2017-02-06 | Outpatient (CLI) | payer MEDICARE, OTHER | END | disposition home or self-care (01) | LOC: GMAJ 10:06 | PROVIDERS: ATTEND Family Medicine | DX: I50.9 Heart failure, unspecified (principal); E03.9 Hypothyroidism, unspecified ==

== ENCOUNTER → 2017-02-21 | Outpatient (CLI) | payer MEDICARE, OTHER ==
--- NOTE | 2017-02-22 15:03 | RAD ---
EXAM DESCRIPTION: UGI CLINICAL HISTORY: ESOPHAGEAL REFLUX DISEASE COMPARISON: None TECHNIQUE: The patient swallowed a barium pill with water under fluoroscopic visualization to evaluate transit time. Patient then swallowed gas-producing granules, water, and heavy-density barium under fluoroscopic visualization. Patient also drank medium-density barium through a straw, prone position. The images were obtained with the patient upright and horizontal. 11 fluoroscopic images taken. Seven cine loops. Permanent images of this procedure are stored in the patient's medical record. Fluoroscopy time was 3.5 minutes. Cumulative dose: 96.19 mGy. FINDINGS: Normal transit time of barium pill from the oropharynx to the stomach. Laryngeal penetration/minimal aspiration is noted by contrast coating the proximal laryngeal patrick. This was not seen in real-time, and no patient coughing. Delayed primary peristaltic wave in the esophagus. No obstruction. Secondary and tertiary contractions. Large hiatal hernia is relatively fixed. Reflux from the hernia to the level of the tracheal chyna increased with coughing and horizontal position. Gas and contrast material distending the remainder of the stomach which is normally positioned. No intrinsic or extrinsic lesions. No gastroduodenal obstruction. No mucosal lesions or mass effect on the duodenum. IMPRESSION: 1. Silent penetration/aspiration. Consider evaluation by speech language pathologist. 2. Diminished primary peristaltic wave with secondary and tertiary contractions. No mass effect or definite intrinsic lesions. 3. Large hiatal hernia which is relatively fixed. Moderate gastroesophageal reflux. Electronically signed by: Faheem Mcclure MD 02/22/2017 3:02 PM CDT
== END ==
LOC: RAD 10:48
PROVIDERS: ATTEND Nurse Practitioner Family
DX: K59.00 Constipation, unspecified (principal); R63.4 Abnormal weight loss; R68.81 Early satiety; K21.9 Gastro-esophageal reflux disease without esophagitis; K44.9 Diaphragmatic hernia without obstruction or gangrene; E78.5 Hyperlipidemia, unspecified; Z86.010 Personal history of colon polyps

== ENCOUNTER → 2017-05-08 | Outpatient (CLI) | payer MEDICARE, OTHER ==
--- NOTE | 2017-05-10 09:54 | MAM ---
EXAM DESCRIPTION: 3D Screening BILATERAL : Digital Mammography. CLINICAL HISTORY: 71 years Female SCREENING . No complaints. Remote family history breast cancer. Postmenopausal. Taking HRT 5 or more years ago.. COMPARISON: 2-D digital screening bilateral studies 05/05/2016 and 04/20/2015. Report from prior examination also reviewed. TECHNIQUE: Bilateral CC and MLO projection full-field images, 3-D tomosynthesis digital mammographic technique. Also bilateral synthesized CC/ MLO full-field images. CAD not utilized. FINDINGS: The breast parenchymal density pattern is: Scattered areas of fibroglandular density. No skin thickening or nipple retraction bilateral vascular calcifications. Bilateral solitary microcalcifications. Very dense tissue is retroareolar anterior third bilaterally.. No focal, stellate mass or density, focal asymmetry , and no suspicious microcalcifications bilaterally. Stable mammograms compared to prior studies taking into account differences in mammographic technique IMPRESSION: BI-RADS CATEGORY: 2 - BENIGN FINDINGS. FOLLOW UP: Routine digital bilateral screening, one year interval from April 2017. Written communication explaining the IMPRESSION and follow-up, will be mailed to the patient and referring health care provider. According to the [employer], yearly mammograms are recommended starting at age 40 and continuing as long as a woman is in good health. Any breast change noted on a breast self-exam should be reported promptly to the patient's healthcare provider. Breast MRI is recommended for women with an approximately 20-25% or greater lifetime risk of breast cancer, including women with a strong family history of breast or ovarian cancer and women who have been treated for Hodgkin's disease. A negative mammographic report should not delay tissue diagnosis in patients with significant clinical history or physical findings. Extremely dense breast tissue limits the sensitivity of digital mammography. Electronically signed by: Faheem Mcclure MD 05/10/2017 9:52 AM [facility]
== END | disposition home or self-care (01) ==
LOC: MAMMO 14:04
PROVIDERS: ATTEND Family Medicine
DX: Z12.31 Encounter for screening mammogram for malignant neoplasm of breast (principal)
CPT/HCPCS: 77063; G0202

== ENCOUNTER → 2017-05-16 | Outpatient (CLI) | payer MEDICARE, OTHER ==
--- NOTE | 2017-05-19 03:09 | US ---
EXAM DESCRIPTION: Abdomen,Complete CLINICAL HISTORY: 71 years Female, RUQ PAIN COMPARISON: CT abdomen 07/12/2016 TECHNIQUE: Grayscale, waveform, and color Doppler images of the abdomen are acquired. FINDINGS: Pancreas: The partially visualized pancreas is unremarkable. Liver: Normal echotexture. Gallbladder: Unremarkable. Biliary ducts: The common bile duct measures 2 mm. Right Kidney: Measures 9.1 cm. No renal stones or hydronephrosis. Left kidney: Measures 3.2 cm. No renal stones or hydronephrosis. Spleen: Unremarkable measuring 9.4 cm. Aorta: The proximal aorta measures 1.8 cm, the mid aorta measures 1.5 cm, the distal aorta measures 1.9 cm. IMPRESSION: No findings to suggest cholelithiasis or cholecystitis. Unremarkable abdominal ultrasound. Electronically signed by: Mendez Alejandro MD 05/19/2017 3:08 AM [employer]
== END | disposition home or self-care (01) ==
LOC: US 09:58
PROVIDERS: ATTEND Family Medicine
DX: R10.84 Generalized abdominal pain (principal); R10.11 Right upper quadrant pain

== ENCOUNTER → 2017-06-01 | Outpatient (CLI) | payer MEDICARE, OTHER ==
--- NOTE | 2017-06-01 22:37 | NM ---
EXAM DESCRIPTION: Hepatobiliary w/CCK: Nuclear Medicine. CLINICAL HISTORY: RIGHT UPPER QUADRANT PAIN COMPARISON: Ultrasound of the abdomen 05/16/2017. TECHNIQUE: Patient was given 7.7 mCi of technetium 99 M mebrofenin radiopharmaceutical IV. Anterior gamma camera images were obtained of the right upper quadrant at 1 minute intervals for one hour . The patient was then given 5 mg slow IV infusion of CCK. Gallbladder ejection fraction was evaluated by measuring diminishing radioactivity in the gallbladder, over 30 min interval. FINDINGS: After administration of radiopharmaceutical, immediate visualization of the entire liver with no focal areas of increased or decreased radiopharmaceutical activity. Timely visualization of the gallbladder, intrahepatic and extrahepatic biliary ducts and the small intestine. After CCK administration began, the patient expressed no reproduction of symptoms. Peak gallbladder activity was noted within the infusion began. Lowest amount of gallbladder activity noted approximately 28 minutes after infusion began. Decrease in gallbladder activity during this interval was 33%. IMPRESSION: 1. No intrahepatic or extrahepatic biliary obstruction. Timely visualization of the gallbladder and small intestine. 2. Gallbladder ejection fraction versus below the lower limit of normal. This is suggestive of chronic cholecystitis and/or gallbladder dyskinesia. Electronically signed by: Faheem Mcclure MD 06/01/2017 10:36 PM [employer] Workstation: [id number]
== END | disposition home or self-care (01) ==
LOC: NM 11:25
PROVIDERS: ATTEND Surgery
DX: R10.11 Right upper quadrant pain (principal)
CPT/HCPCS: 78227; A9537

== ENCOUNTER → 2017-06-08 | Outpatient (CLI) | payer MEDICARE, OTHER ==
--- NOTE | 2017-06-08 17:11 | NM ---
EXAM DESCRIPTION: Bone Scan, Whole Body CLINICAL HISTORY: osteoporosis with current pathological fracture COMPARISON: CT thoracic and lumbar spine dated August 29, 2016. TECHNIQUE: Following intravenous administration of 26.7 mCi technetium 99m MDP, whole body scintigraphic imaging was performed in the anterior and posterior projections. FINDINGS: Skull: Unremarkable. Spine: No focal area of intense uptake to suggest the presence of acute pathologic compression deformity fracture. Dextroscoliosis noted of the lumbar spine. Thorax: Homogeneous physiologic radiotracer activity within the bilateral ribs. Abdomen pelvis: Physiologic urinary activity within the bilateral kidneys and urinary bladder. No focal area of intense uptake within the sacrum and osseous pelvis to suggest the presence of acute fractures. Extremities: Mild degenerative uptake within the bilateral shoulders and knee joints. Soft tissue: Normal distribution of radiopharmaceutical. IMPRESSION: 1. No focal area of intense uptake in the spine, sacrum, or osseous pelvis to suggest the presence of acute pathologic compression deformity fracture. 2. Dextroscoliosis of the lumbar spine. 3. Mild degenerative uptake in the bilateral shoulders and knee joints. Electronically signed by: Wilner Richey MD 06/08/2017 5:10 PM [facility]
--- NOTE | 2017-06-09 14:44 | CT ---
EXAM DESCRIPTION: Abdoment/Pelvis w/o Contrast CLINICAL HISTORY: 71 years, 71 years, Female, Female, osteoporosis with current pathological fracture COMPARISON: None. TECHNIQUE: CT of the abdomen and pelvis is performed according to our non contrast protocol This exam was performed according to our departmental dose-optimization program, which includes automated exposure control, adjustment of the mA and/or kV according to patient size and/or use of iterative reconstruction technique. FINDINGS: Lung bases are essentially clear except for a large retrocardiac hiatal hernia. The unenhanced liver is unremarkable and the gallbladder is normally distended without ductal dilation or obvious stones. A normal splenic contour is noted without enlargement and the pancreas is grossly normal. The right and left adrenal glands are normal. Aortic calcification and tortuosity without aneurysm is noted without retroperitoneal abnormality noted. The unenhanced kidneys are unremarkable. No obvious mass or cyst or obstruction is seen and no intrarenal calculi noted. Large and small bowel caliber is normal. Within the pelvis the uterus appears surgically absent. The anterior abdominal wall is unremarkable. The bladder is normal in appearance. The bony structures are markedly abnormal with advanced degenerative changes and marked dextroscoliosis of the lumbar spine with extensive prior lower lumbar surgery with an epidural stimulator in place in the lower thoracic spine and pedicle screws internally fixing the L4-5 level with evidence of prior laminectomy. The hips and pelvis and sacrum appear intact. No compression deformities of the lumbar segments are evident. Advanced multilevel degenerative disc changes from L2-3 through L5-S1 is apparent. IMPRESSION: 1. Large retrocardiac hiatal hernia with clear lung bases. 2. Advanced degenerative changes and dextroscoliosis of the lumbar spine with prior laminectomy and pedicle screw fixation at L4-5 level with epidural simulator in the lower dorsal spine. 3. Extensive aortic atherosclerosis without aneurysm. 4. Compression deformities or definite bony destructive changes are not apparent. Electronically signed by: Martin Cuevas MD 06/09/2017 2:43 PM PHOTOLITHOGRAPHER
== END ==
LOC: NM 09:00
PROVIDERS: ATTEND Neurological Surgery
DX: M80.08XG Age-related osteoporosis with current pathological fracture, vertebra(e), subsequent encounter for fracture with delayed healing (principal); M41.9 Scoliosis, unspecified

== ENCOUNTER → 2017-10-19 | Outpatient (CLI) | payer MEDICARE, OTHER | LOC: GMAJ 10:41 | PROVIDERS: ATTEND Family Medicine | DX: D50.8 Other iron deficiency anemias (principal) ==

== ENCOUNTER → 2018-01-15 | Outpatient (CLI) | payer MEDICARE, OTHER | LOC: GMAJ 11:08 | PROVIDERS: ATTEND Family Medicine | DX: I50.9 Heart failure, unspecified (principal); E03.9 Hypothyroidism, unspecified ==

== ENCOUNTER → 2019-02-11 | Outpatient (CLI) | payer MEDICARE, OTHER | LOC: GMAJ 10:53 | PROVIDERS: ATTEND Family Medicine | DX: M10.9 Gout, unspecified (principal); E78.2 Mixed hyperlipidemia ==

== ENCOUNTER → 2019-02-14 | Outpatient (CLI) | payer MEDICARE, OTHER ==
--- NOTE | 2019-02-18 19:50 | MAM ---
EXAM DESCRIPTION: 3D Screening BILATERAL : Digital Mammography. CLINICAL HISTORY: 73 years Female ANNUAL SCREENING . Soreness in the left breast near the vicinity of the pacemaker. No other complaints or personal history of breast cancer. Remote Family history of breast cancer. Childbirth. Postmenopausal 45+ years. HRT 5 or more years ago. Lifetime risk of developing breast cancer (Tyrer-Cuzick model)(%): 3.0. COMPARISON: Bilateral screening digital breast tomosynthesis 05/08/2017. TECHNIQUE: Bilateral CC and MLO projection full-field images, digital tomosynthesis mammographic technique. Bilateral digital 2-D full-field MLO images. CAD not available for tomosynthesis or 2-D images. FINDINGS: The breast parenchymal density pattern is: Scattered areas of fibroglandular density. No skin thickening or nipple retraction. Dense fibroglandular tissues in the anterior third of both breasts. Associated with microcalcifications. Bilateral vascular calcifications. No new focal, stellate mass or density, focal asymmetry , and no suspicious microcalcifications bilaterally. Stable mammograms compared to prior study. IMPRESSION: Benign exam. BIRAD CATEGORY: 2 BENIGN FINDINGS. RECOMMENDATIONS: FOLLOW UP: Routine digital bilateral mammographic screening, one year interval from January 2019. Written communication explaining the IMPRESSION and follow-up, will be mailed to the patient and referring health care provider. According to the [employer], yearly mammograms are recommended starting at age 40 and continuing as long as a woman is in good health. Any breast change noted on a breast self-exam should be reported promptly to the patient's healthcare provider. Breast MRI is recommended for women with an approximately 20-25% or greater lifetime risk of breast cancer, including women with a strong family history of breast or ovarian cancer and women who have been treated for Hodgkin's disease. A negative mammographic report should not delay tissue diagnosis in patients with significant clinical history or physical findings. Extremely dense breast tissue limits the sensitivity of digital mammography. Electronically signed by: Faheem Mcclure MD 02/18/2019 7:49 PM CDT
== END ==
LOC: MAMMO 11:54
PROVIDERS: ATTEND Family Medicine
DX: Z12.31 Encounter for screening mammogram for malignant neoplasm of breast (principal)

== ENCOUNTER → 2019-03-26 | Outpatient (CLI) | payer MEDICARE, OTHER ==
--- NOTE | 2019-03-26 19:43 | RAD ---
EXAM DESCRIPTION: MYELOGRAM, LUMBAR SPINE: RF. CLINICAL HISTORY: RADICULOPATHY. Spinal stimulator may not be working. considering removing it. COMPARISON: Post lumbar myelogram CT scan following this procedure. TECHNIQUE: The procedure was explained to the patient with risks and benefits. The patient gave verbal and written consent. Timeout was performed to confirm patient ID and type of procedure. Patient prone on standard fluoroscopic table. Spinning Frame Fixer image recorded neutral position. L2-L3 interspinous fossa localized by fluoroscopy. Overlying skin was marked and prepped with sterile solution and sterile draping applied. Subcutaneous and deep 1% lidocaine injection local. 21-gauge spinal needle introduced into the interspinous fossa under fluoroscopic guidance. Clear CSF fluid appeared in the hub of the needle, confirming placement in the subarachnoid space. 13 mL of intrathecal contrast was injected under fluoroscopic visualization. Observed contrast material in the lumbar subarachnoid space. No immediate complications. Total images 4. Total fluoroscopy time was 2.2 minutes. Dose: 66.8 mGy. DAP 16.4 Gy-cm2. FINDINGS: On the preliminary mirror painter film, dorsal column stimulating electrodes are seen at the T11 level. Stimulator power pack superimposed over the left iliac wing. Exaggerated right dextroscoliosis with compensatory thoracolumbar and lumbosacral levoscoliosis. Posterior transpedicular fusion L4-L5 with unilateral connecting rods. Also Interbody fusion device. Diffuse abdominal aortic calcifications. Contrast visualized in the subarachnoid space from S1 to L2. Prominent bilateral nerve root sleeves at S1. Prominent ventral extradural defects representing discs and endplate osteophytes L4-L5, L3-L4, L2-L3, and L1-L2. IMPRESSION: Successful fluoroscopic guided lumbar myelogram following lumbar puncture. Patient had lumbar spine CT scan after the myelogram. Patient was observed for one hour after the post myelogram CT scan. Patient and family member were given home instructions. Patient transferred home in good condition with family member as shuttle bus driver. Electronically signed by: Faheem Mcclure MD 03/26/2019 7:41 PM CDT
--- NOTE | 2019-03-26 20:36 | CT ---
EXAM DESCRIPTION: Lumbar Spine: Computed Tomography. CLINICAL HISTORY: 73 years Female RADICULOPATHY COMPARISON: None Available. TECHNIQUE: Spiral, axial 2.5 x 2.5 mm scans through the lumbarspine after lumbar intrathecal contrast myelogram. Coronal and sagittal 2.0 mm Reconstructions. No adverse reactions. Total Exam DLP: 409.24 mGy-cm. This exam was performed according to our departmental dose-optimization program which includes automated exposure control, adjustment of the mA and/or kV according to patient size and/or use of iterative reconstruction technique; to reduce radiation dose to as low as reasonably achievable (ALARA). FINDINGS: Contrast seen into the inferior termination of the thecal sac at the lower S2 level. L4-5 disc space is identified on axial series 4, image 60. Posterior fusion construct L4-L5 with transpedicular screws bilaterally at both levels and unilateral connecting rods. Interbody fusion device L4-L5. Hardware is intact and near-anatomic alignment. Normal density of bone around the screws. Grade 1 anterolisthesis 2 mm at L4-L5. Minimal subsidence of the fusion device into superior and inferior endplate to the left of midline. No significant bulging material into the canal. Contrast is visualized in the right L4 nerve root sheath more than in the left. Soft tissue, possibly disc material within the left subarticular recess with poor visualization of contrast in the descending left L5 nerve root sleeve. Left posterior endplate hypertrophic changes bulging into the left ventral canal and subarticular recess related to the position of the interbody fusion device. Moderate left foraminal narrowing and minimal right foraminal narrowing. L5-S1: Posterior disc space narrowing with posterior midline bulge 4 mm. Bilateral hypertrophic facet arthrosis L4-5. Ligaments have been resected along with bilateral partial laminectomy. Mild canal narrowing. The course of the right L5 pedicle screw is moderately narrowing the right neural foramen. Contrast seen in the right L5 and bilateral S1 nerve root sleeves. Left L5 nerve root sleeve is partially visualized but only contains contrast has at the thecal sac origin. L3-L4: Moderate disc space loss and diffuse degenerative and desiccated gas formation in the disc space more to the left of midline. This is narrowing the left subarticular recess. Severe left foraminal narrowing or mild stenosis, and moderate narrowing of the right foramen. Disc space taller and less endplate changes to the right of midline. Posterior broad-based disc bulge 4 mm which is also encroaching on the left foramen contrast in the bilateral L4 nerve root sleeves, more right than left. Hypertrophic bilateral facet arthrosis more on the left with spur impinging the left lateral thecal sac. L2-L3: Diffuse endplate reactive changes in the mid and left side of the disc space with narrowing and and anterior disc bulge and endplate reaction. Anterior endplate changes and taller space to the right of midline. Posterior mild disc bulge and endplate spurs impressing on the ventral sac. Contrast entering the bilateral L3 nerve root sleeves. Bilateral hypertrophic facet arthrosis and posterior ligament thickening more left than right. Mild right foraminal narrowing and severe left foraminal narrowing or mild stenosis. Conus terminates just above the disc space. L1-L2: Posterior mild disc bulge almost abutting the cord. Trace retrolisthesis. Anterior endplate reactive changes and disc bulge and endplate ridging. Right foramen patent. Left foraminal stenosis. Posterior disc bulge. Mild canal narrowing. T12-L1: Anterior endplate reactive changes and broad-based disc space loss. Tiny posterior bulge in the midline into the left of midline. Due to scoliotic curvature, the cord deviates anteriorly and is abutting the bulging disc. Minimal canal narrowing. Mild to moderate left foraminal narrowing and right foramen is patent. Contrast in the bilateral T12 nerve root sleeves. L1-L4 dextroscoliosis with secondary levoscoliosis lumbosacral and thoracolumbar. No compression type vertebral body fractures at any level. No fractures of the posterior elements. IMPRESSION: 1. Degenerative scoliosis with multiple levels of disc space loss, spondylosis, hypertrophic facet arthrosis and ligament thickening. Posterior fusion construct bilaterally L4-L5 with no bony or hardware complications. The course of the right L5 transpedicular screw is narrowing the superior aspect of the right foramen which is abutting the right L5 nerve. 2. Soft tissue possibly disc material or granulation tissue in the left subarticular recess at L4-5 with possible compromise of the descending left L5 nerve. 3. Left foraminal stenosis secondary to hypertrophic bone formation and scoliosis at L1-2 and L2-3. Severe left foraminal narrowing at L3-4.. Electronically signed by: Faheem Mcclure MD 03/26/2019 8:34 PM CDT
== END ==
LOC: CT 10:16
PROVIDERS: ATTEND Neurological Surgery
DX: M47.26 Other spondylosis with radiculopathy, lumbar region (principal); M41.86 Other forms of scoliosis, lumbar region; M48.062 Spinal stenosis, lumbar region with neurogenic claudication

== ENCOUNTER → 2019-04-17 | Outpatient (CLI) | payer MEDICARE, OTHER | LOC: GMAJ 14:15 | PROVIDERS: ATTEND Family Medicine | DX: D64.9 Anemia, unspecified (principal) ==

== ENCOUNTER → 2019-08-22 | Outpatient (CLI) | payer MEDICARE, OTHER | LOC: GMAJ 10:24 | PROVIDERS: ATTEND Family Medicine | DX: D50.8 Other iron deficiency anemias (principal) ==

== ENCOUNTER → 2019-10-15 | Outpatient (CLI) | payer MEDICARE, OTHER | LOC: NC 10:06 | PROVIDERS: ATTEND Family Medicine | DX: I13.0 Hypertensive heart and chronic kidney disease with heart failure and stage 1 through stage 4 chronic kidney disease, or unspecified chronic kidney disease (principal); N18.9 Chronic kidney disease, unspecified; R73.09 Other abnormal glucose; I50.32 Chronic diastolic (congestive) heart failure; E66.9 Obesity, unspecified; M10.9 Gout, unspecified; E78.2 Mixed hyperlipidemia; D50.9 Iron deficiency anemia, unspecified; E03.9 Hypothyroidism, unspecified; Z13.1 Encounter for screening for diabetes mellitus ==

== ENCOUNTER → 2019-11-08 | Outpatient (CLI) | payer MEDICARE, OTHER | LOC: ECHO 11:05 | PROVIDERS: ATTEND Family Medicine | DX: I50.9 Heart failure, unspecified (principal); I51.7 Cardiomegaly ==

== ENCOUNTER 2020-03-26 05:29 | Day surgery (SDC) | payer MEDICARE, OTHER ==
[2020-03-26] MEDS ORDERED: LACTATED RINGERS 1,000 ML ONE (06:35)
[2020-03-26] MEDS ORDERED: PROPOFOL 200 MG/20 ML VIAL IV ONE (07:00)
[2020-03-26] MEDS ORDERED: LIDOCAINE 1% 10 ML VIAL INJ ONE (07:00)
[2020-03-26] MEDS ORDERED: DEXAMETHASONE INJ 10 MG/ML VIAL ONE (07:00)
[2020-03-26 08:55] VITALS: O2SAT 97
[2020-03-26 11:08] VITALS: BP 94/47; TEMP 97.2
--- NOTE | 2020-03-26 13:21 | OP ---
DATE OF PROCEDURE: 03/26/20 PREOPERATIVE DIAGNOSIS: 1. Symptoms of gastroesophageal reflux with history of Mary fundoplication. POSTOPERATIVE DIAGNOSIS: 1. Gastritis. 2. Possible pyloric stricture. PROCEDURE: 1. EGD with biopsy of antrum. SURGEON: Mendez Davalos MD ANESTHESIA: General and local. FINDINGS: The pylorus appeared relatively narrow. We just got the scope in. This was approximately 1.5 cm and was inflamed as well. There was no evidence of a sliding hiatal hernia or slippage of the wrap. The wrap appeared intact. The esophagus appeared normal. Duodenum was normal. COMPLICATIONS: None. PLAN: Discharge. INDICATION: The patient presents with pain and reflux symptoms. She has previously had a fundoplication. She was consented for EGD. PROCEDURE: She was brought to the operative suite in supine position. IV general anesthesia was induced. She has a bite block in place. The endoscopy was passed without difficulty through the posterior pharynx and down into the stomach. We then noticed minimal erythema around the pylorus. It was difficult to get in. We just barely got in with a little bit of force. It was about 1.5 cm in size. Once we got into the duodenum, it appeared normal with no evidence of ulcers. She also had a food bolus in her stomach. Upon withdrawal, we took 2 biopsies on that area. On retroflexion, the wrap was apparent, but there was no evidence of complications. There was no sign of a sliding or slipped or wrap or additional hiatal hernia and no ulcers in the stomach itself. Upon withdrawal, the GE junction appeared normal, as did the esophagus. She tolerated the procedure and was awakened and taken to Recovery to be discharged. #[id number] cc: Mendez Dela Cruz MD [facility]
== END 2020-03-26 11:44 | disposition home or self-care (01) ==
LOC: AMB 05:29
PROVIDERS: ATTEND Surgery
DX: K21.9 Gastro-esophageal reflux disease without esophagitis (principal); K29.50 Unspecified chronic gastritis without bleeding; I25.10 Atherosclerotic heart disease of native coronary artery without angina pectoris; E78.5 Hyperlipidemia, unspecified; I73.9 Peripheral vascular disease, unspecified; I87.2 Venous insufficiency (chronic) (peripheral); I65.23 Occlusion and stenosis of bilateral carotid arteries; I10 Essential (primary) hypertension; Z88.8 Allergy status to other drugs, medicaments and biological substances; Z79.82 Long term (current) use of aspirin; Z79.899 Other long term (current) drug therapy
CPT/HCPCS: 00731; 43239; J7120

== ENCOUNTER → 2020-04-23 | Outpatient (CLI) | payer MEDICARE, OTHER | LOC: GMAJ 15:01 | PROVIDERS: ATTEND Family Medicine | DX: D50.8 Other iron deficiency anemias (principal); I10 Essential (primary) hypertension; E78.2 Mixed hyperlipidemia; M10.9 Gout, unspecified ==